=== PATIENT | male | born 1965 | race Caucasian/White ===

== ENCOUNTER → 2023-10-06 07:53 | Outpatient (REF) | payer BC, SELFPAY | LOC: PET 07:53 | PROVIDERS: ATTENDING PHYSICIAN Internal Medicine Hematology & Oncology | DX: C7A.012 Malignant carcinoid tumor of the ileum (principal) | CPT/HCPCS: 78815 ==

== ENCOUNTER → 2024-01-02 14:48 | Outpatient (REF) | payer BC, SELFPAY | LOC: HWRAD 14:48 | PROVIDERS: ATTENDING PHYSICIAN Internal Medicine Medical Oncology; FAMILY PHYSICIAN Family Medicine | DX: C7A.095 Malignant carcinoid tumor of the midgut, unspecified (principal) | CPT/HCPCS: 74178; Q9967 ==

== ENCOUNTER → 2024-04-01 10:40 | Outpatient (REF) | payer BC, SELFPAY ==
[2024-04-01 11:08] LABS: % Basophils 0.3 % (0-2); % Eosinophils 0.1 % (0-6); % Immature Granulocytes 0.4 % (0-0.5); % Lymphocytes 15.1 % (20.5-51.1); % Monocytes 9.9 % (1.7-9.3); % Neutrophils 74.2 % (42.2-75.2); Absolute Lymphocytes 1.2 10^3/uL (1.2-3.4); Absolute Monocytes 0.8 10^3/uL (0.1-0.6); Absolute Neutrophils 5.9 10^3/uL (1.4-6.5); Hematocrit 42.3 % (39.0-52.0); Hemoglobin 14.8 g/dL (13.0-18.0); Mean Corpuscular Hgb 32.4 pg (27.0-31.0); Mean Corpuscular Volume 92.6 fL (80.0-94.0); Mean Platelet Volume 9.3 fL (7.4-10.4); Nucleated Red Blood Cells % 0 % (-); Platelet Count 203 10^3/uL (130-400); Red Blood Cell Count 4.57 10^6/uL (4.70-6.10)
[2024-04-01 11:35] LABS: Procalcitonin 0.13 ng/ml (0.0-0.25)
[2024-04-01 11:50] LABS: ALT (SGPT) 36 U/L (0-50); AST (SGOT) 43 U/L (17-59); Albumin 4.6 g/dl (3.5-5.0); Alkaline Phosphatase 105 U/L (38-126); Blood Urea Nitrogen 22 mg/dl (9-20); Calcium 9.2 mg/dl (8.4-10.2); Carbon Dioxide 24 mmol/L (22-30); Chloride 94 mmol/L (98-107); Glucose 146 mg/dl (70-99); Potassium 4.2 mmol/L (3.5-5.1); Sodium 134 mmol/L (135-145); Total Bilirubin 0.9 mg/dl (0.2-1.3); Total Protein 7.4 g/dl (6.3-8.2); eGFR > 60.00
[2024-04-04 03:11] LABS: Calcitonin <2.0 pg/mL (0.0-7.5)
== END ==
LOC: REG 10:40
PROVIDERS: ATTENDING PHYSICIAN Nurse Practitioner Family; FAMILY PHYSICIAN Family Medicine; REFERRING PHYSICIAN Internal Medicine Medical Oncology
DX: E53.8 Deficiency of other specified B group vitamins (principal); E55.9 Vitamin D deficiency, unspecified; C7A.8 Other malignant neuroendocrine tumors; R50.9 Fever, unspecified; R05.1 Acute cough
CPT/HCPCS: 36415; 71046; 80053; 82308; 84145; 85025; 86140

== ENCOUNTER 2024-04-01 21:24 | Emergency (ER) | payer BC, SELFPAY ==
[2024-04-01 21:32] VITALS: BP 93/61
[2024-04-01 22:07] VITALS: BMI 21.7
[2024-04-01 22:10] VITALS: BP 104/70
--- NOTE | 2024-04-01 22:47 | ED.GENMED ---
History of Present Illness
<Bushra Mendez SURVEY RESEARCH ANALYST - Last Filed: 04/04/24 15:59>
General
Chief Complaint: Fever
Source: patient
Exam Limitations: none
Time Seen by Provider: 04/01/24 22:46
Nursing documentation reviewed up to this point in time: agreed with
History of Present Illness
History of Present Illness:
58-year-old male with history of diverticulitis, GERD, bowel obstruction,bowel resection was seen by his PCP Dr. Allen's SURVEY RESEARCH ANALYST earlier today and had blood work at this hospital and was placed on an antibiotic as when he urinated 'there was little
pieces of stuff in the urine,' rx for Cipro 500 mg BID given, pt has had one dose. States 'there was blood in the urine when they dipped it.' Denies frequency, urgency or pain with urination.
Pt w hx of neuroendocrine tumor remove 06/2022, receives monthly Lanreotide injections, last one was Fri 3 days ago. He started with fever 103.0 that night, never had fever with this injection before.
Had neg Covid, Flu and rapid strep at PCP office.
Had neg CXR today
Pt denies abdominal pain, n/v/d, had chronic loose stools from previous partial ileum resection w appendectomy 11/2021.
Past History
<Bushra Mendez SURVEY RESEARCH ANALYST - Last Filed: 04/04/24 15:59>
Past History
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
ED Past Surgical History: Appendectomy, Bowel resection and Cholecystectomy
Social History
Tobacco: Former smoker
Alcohol: Daily (Beer 1-2)
Drug: None
Personal: Partner (Common law)
Living: with family
Review of Systems
<Bushra Mendez SURVEY RESEARCH ANALYST - Last Filed: 04/04/24 15:59>
Review of Systems
Allergies reviewed?: Yes
All Other Systems: ROS reviewed and negative except as documented in HPI and ROS
Constitutional: Reports fever
EENT: Denies sore throat
Respiratory: Denies trouble breathing
Cardiac: Denies chest pain
ABD/GI: Denies abdominal pain, nausea, vomiting, diarrhea or anorexia
: Denies dysuria, frequency, flank pain, difficulty voiding or urgency
Musculoskeletal: Reports no symptoms
Skin: Reports no symptoms
Neurological: Reports no symptoms
Phy Exam
<Bushra Mendez, SURVEY RESEARCH ANALYST - Last Filed: 04/04/24 15:59>
Physical Exam
Physical Exam:
GENERAL: No acute distress. A&Ox3.
CONSTITUTIONAL: Afebrile.
EYES: clear, conjunctivae normal
Neck: Supple
ENMT: moist mucus membranes, Pharynx nl
RESPIRATORY: Regular respirations, nonlabored, lungs clear.
CARDIOVASCULAR: Regular rate and rhythm, no murmurs, no rubs.
GI: Soft, nontender, normal BS
MUSCULOSKELETAL: Moves with ease. Well perfused.
SKIN: Warm, dry, pink
PSYCH: Normal mood and affect. Well kept, interactive and appropriate
NEUROLOGIC: Awake, alert and oriented. No focal neurological deficits
Course
<Bushra Mendez, SURVEY RESEARCH ANALYST - Last Filed: 04/04/24 15:59>
Orders/Labs/Results
Orders:
Orders
04/01/24 22:57
Urinalysis Reflex To Culture Urgent
Date Specimen was Collected: 04/01/24
Time Specimen was Collected: 22:55
Urine Microscopic Reflex Cult Urgent
Urine Culture Urgent
EDGAR Source: U
Specimen Description:
Date Specimen was Collected: 04/01/24
Time Specimen was Collected: 22:55
04/01/24 23:27
CT Abd/pel Without Iv Or Oral Urgent
Comment:
Reason For Exam: hematuria, fever
Abnormal Lab Results
04/01/24
22:57
Ur Occult Blood Reflex 3+ A
(Negative)
Urine RBC 3-6 A /HPF
(0-2)
Urine Bacteria (Reflex) Moderate A
(Negative)
04/01/24 21:33
04/01/24 21:33
Vital Signs
Initial and Last Documented VS:
Initial Vital Signs
Temp Pulse Resp BP Pulse Ox
99.2 F 72 18 93/61 97
04/01/24 21:32 04/01/24 21:32 04/01/24 21:32 04/01/24 21:32 04/01/24 21:32
Last Documented Vital Signs
Temp Pulse Resp BP Pulse Ox
98.1 F 72 18 112/74 99
04/01/24 22:11 04/01/24 21:32 04/01/24 21:32 04/02/24 01:00 04/02/24 01:15
<Beto Logan, DO - Last Filed: 04/02/24 00:57>
Orders/Labs/Results
Orders:
Orders
04/01/24 22:57
Urinalysis Reflex To Culture Urgent
Date Specimen was Collected: 04/01/24
Time Specimen was Collected: 22:55
Urine Microscopic Reflex Cult Urgent
Urine Culture Urgent
EDGAR Source: U
Specimen Description:
Date Specimen was Collected: 04/01/24
Time Specimen was Collected: 22:55
04/01/24 23:27
CT Abd/pel Without Iv Or Oral Urgent
Comment:
Reason For Exam: hematuria, fever
Abnormal Lab Results
04/01/24
22:57
Ur Occult Blood Reflex 3+ A
(Negative)
Urine RBC 3-6 A /HPF
(0-2)
Urine Bacteria (Reflex) Moderate A
(Negative)
04/01/24 21:33
04/01/24 21:33
Vital Signs
Initial and Last Documented VS:
Initial Vital Signs
Temp Pulse Resp BP Pulse Ox
99.2 F 72 18 93/61 97
04/01/24 21:32 04/01/24 21:32 04/01/24 21:32 04/01/24 21:32 04/01/24 21:32
Last Documented Vital Signs
Temp Pulse Resp BP Pulse Ox
98.1 F 72 18 112/74 99
04/01/24 22:11 04/01/24 21:32 04/01/24 21:32 04/02/24 01:00 04/02/24 01:15
<Bushra Mendez SURVEY RESEARCH ANALYST - Last Filed: 04/04/24 15:59>
MDM/Problems Addressed
Differential Diagnosis Includes:
viral illness, UTI
MDM/Problems Addressed:
58-year-old male with history of diverticulitis, GERD, bowel obstruction,bowel resection was seen by his PCP Dr. Allen's SURVEY RESEARCH ANALYST earlier today and had blood work at this hospital and was placed on an antibiotic as when he urinated 'there was little
pieces of stuff in the urine,' rx for Cipro 500 mg BID given, pt has had one dose. States 'there was blood in the urine when they dipped it.' Denies frequency, urgency or pain with urination.
Pt w hx of neuroendocrine tumor remove 06/2022, receives monthly Lanreotide injections, last one was Fri 3 days ago. He started with fever 103.0 that night, never had fever with this injection before.
Had neg Covid, Flu and rapid strep at PCP office.
Had neg CXR today
Pt denies abdominal pain, n/v/d, had chronic loose stools from previous partial ileum resection w appendectomy 11/2021.
11:30 PM:
UA negative for infection, +3 occult blood, 3-6 RBCs
Will get plain CT of abdomen to rule out kidney stone, ureteral stone
Case discussed with Dr. Logan who will assume care from this point.
<Beto Logan, - Last Filed: 04/02/24 00:57>
*Radiology
Radiology exam reviewed: radiology read reviewed (CT ab pelvis no acute findings)
*Pulse Oximetry
Patient hypoxic: no
*Critical Care Note
Total Time (30-74mins, 75-104mins- exclusive of procedures): Not Applicable
Data Reviewed
Review of Other/Old Records Reveals: Labs (Outpatient labs showed no signs of UTI, normal CBC, performed today)
Source: records
<Beto Logan, - Last Filed: 04/02/24 00:57>
Patient Management
Social determinants of health affecting care: Living situation
Escalation/DeEscalation of care consider admission/obs:
Admit not indicated
ED Attending Note
<Bushra Mendez, SURVEY RESEARCH ANALYST - Last Filed: 04/04/24 15:59>
-
Portions of this chart may have been created with voice recognition software.� Occasional wrong word or��sound alike� substitutions may have occurred due to the inherent limitations of voice recognition software.
<Beto Logan, - Last Filed: 04/02/24 00:57>
ED Attending Note
Patient seen and examined by attending physician: Yes
ED Attending Note:
I have reviewed and agree with history and plan by Sultana mendez. My exam reveals 58-year-old male no acute distress. No acute findings on CT abdomen pelvis. Suspect possible viral cause. No kidney stones. Stable for discharge.
Discharge Plan
Departure
Patient Disposition: Home (Routine Discharge)
Date of Disposition: 04/02/24
Time of Disposition: 00:55
Patient with high blood pressure during this ER visit?: No
Condition: Good
Discharge Problem:
Fever, Hematuria
Instructions: Blood in the urine (hematuria) in adults, Fever, Adult (DC)
Prescriptions:
No Action
multivitamin with folic acid [Tab-A-Marlon] 1 TABLET tablet
1 tab PO DAILY
omeprazole 20 MG capsule,delayed release(DR/EC)
40 mg PO DAILY
acetaminophen 325 MG tablet
650 mg PO Q4HPRN PRN (Reason: mild pain/headache/T>100.4) 0RF
hydrocodone-acetaminophen 1 TABLET tablet
1 tab PO Q4HPRN PRN (Reason: moderate to severe pain) Qty: 25 0RF
simethicone [Gas Relief 80 (simethicone)] 80 MG tablet,chewable
80 mg PO QIDPRN PRN (Reason: GASTROINTESTINAL DISCOMFORT) Qty: 20 0RF
Referrals:
Beto Allen MD [Family Provider] -
Ilan Bailey MD [Active] - Call in 1-3 days for appt
Interventions
Interventions:
*Risk Screen - Suicide Last Done: 04/01/24 21:32
*General Assessment Last Done: 04/01/24 21:32
*Neglect/Abuse Screening Last Done: 04/01/24 21:32
ED- Fall Risk Assessment Last Done: 04/01/24 23:45
*ED COVID-19 Vaccine History Last Done: 04/01/24 22:07
*Nursing Disposition Last Done: 04/02/24 01:27
ED- Neurological Assessment Last Done: 04/01/24 22:07
ED-Skin Assessment Last Done: 04/01/24 22:07
Discharge Date and Time
Discharge Date/Time: 04/02/24 01:35
Print Language: KHMER
[2024-04-01 23:03] LABS: Urine Albumin Trace (Neg - Trace); Urine Bilirubin Negative (Negative); Urine Character Clear (Clear); Urine Color Yellow; Urine Glucose Negative (Negative); Urine Ketone Negative (Negative); Urine Leukocyte Negative (Negative); Urine Nitrite Negative (Negative); Urine Occult Blood 3+ (Negative); Urine Urobilinogen Negative (Neg - 1+)
[2024-04-01 23:09] LABS: Urine Mucus Few
[2024-04-01 23:10] LABS: Urine Bacteria Moderate (Negative); Urine White Cell 0-2 /HPF (0-5)
[2024-04-01 23:46] VITALS: BP 98/72
[2024-04-02] VITALS: BP 114/74
[2024-04-02 01:00] VITALS: BP 112/74
== END 2024-04-02 01:35 | disposition home or self-care (01) ==
LOC: EMR 21:24
PROVIDERS: Registered Nurse; EMERGENCY PHYSICIAN Emergency Medicine; FAMILY PHYSICIAN Family Medicine
DX: R50.9 Fever, unspecified (principal); R31.9 Hematuria, unspecified; K21.9 Gastro-esophageal reflux disease without esophagitis; Z90.49 Acquired absence of other specified parts of digestive tract; Z87.891 Personal history of nicotine dependence
CPT/HCPCS: 99284; 74176; 81003; 81015; 87086

== ENCOUNTER 2024-04-09 19:41 | Emergency (ER) | payer SELFPAY ==
[2024-04-09 19:44] VITALS: BP 120/80
--- NOTE | 2024-04-09 19:52 | EDRN ---
TRIAGE NOTE DONE BY KALPESH MORILLO RN
[2024-04-09 21:45] VITALS: BP 124/74
[2024-04-09 21:46] VITALS: BMI 22.3
[2024-04-09 21:54] LABS: % Basophils 0.3 % (0-2); % Eosinophils 1.1 % (0-6); % Immature Granulocytes 0.3 % (0-0.5); % Lymphocytes 16.2 % (20.5-51.1); % Monocytes 8.3 % (1.7-9.3); % Neutrophils 73.8 % (42.2-75.2); Absolute Eosinophils 0.1 10^3/uL (0-0.7); Absolute Lymphocytes 1.1 10^3/uL (1.2-3.4); Absolute Monocytes 0.6 10^3/uL (0.1-0.6); Absolute Neutrophils 4.9 10^3/uL (1.4-6.5); Hematocrit 33.9 % (39.0-52.0); Hemoglobin 12.2 g/dL (13.0-18.0); Mean Corpuscular Hgb 31.8 pg (27.0-31.0); Mean Corpuscular Volume 88.3 fL (80.0-94.0); Mean Platelet Volume 8.7 fL (7.4-10.4); Nucleated Red Blood Cells % 0 % (-); Platelet Count 329 10^3/uL (130-400); Red Blood Cell Count 3.84 10^6/uL (4.70-6.10); Red Cell Dist. Width 12.2 % (11.5-14.5); White Blood Cell Count 6.7 10^3/uL (4.8-10.8)
[2024-04-09 21:55] LABS: Urine Albumin Negative (Neg - Trace); Urine Bilirubin Negative (Negative); Urine Character Clear (Clear); Urine Color Yellow; Urine Glucose Negative (Negative); Urine Ketone Negative (Negative); Urine Leukocyte Negative (Negative); Urine Nitrite Negative (Negative); Urine Occult Blood 1+ (Negative); Urine Specific Gravity 1.015 (<1.030); Urine Urobilinogen Negative (Neg - 1+)
--- NOTE | 2024-04-09 22:00 | ED.GENMED ---
History of Present Illness
<EVELIN Newell - Last Filed: 04/10/24 02:00>
General
Chief Complaint: Fever
Source: patient and significant other
Time Seen by Provider: 04/09/24 22:00
Nursing documentation reviewed up to this point in time: agreed with
History of Present Illness
History of Present Illness:
Patient is a 58 year old male with a PMH of GERD bowel tumor and bowel resection presents to the ED with complaints of a fever x 4 hours. Patient states around 600pm tonight his temperature was 103. He was here on 04/01/24 for fever and hematuria. He
was negative for flu covid and strep, xray was negative. He was discharged and went to a PCP who gave him Cipro for a bladder infection. Patient states shortly after taking the Cipro, he developed a cough and watery diarrhea throughout this past
week. Patient denies blood in the stool. The cough is productive and described as phlegm and no blood. He states throughout the week his temperature would rise, which he takes Tylenol for. This is the first time it has been 103 in the past week. He
has an appointment with a urologist in a couple of weeks. Patient denies nausea vomiting abdominal pain flank pain dysuria urinary frequency/urgency headache chest pain palpitations sob.
Patient has a PMH of a neuroendocrine tumor in 2020 which was removed along with part of his bowel. He also has a PMH of diarrhea diverticulitis and GERD. Patient has been taking 2 Tylenol every 6 hours for the past week which would keep his
temperature down temporarily. Patient is a former smoker and admits to alcohol use.
Past History
<EVELIN Newell - Last Filed: 04/10/24 02:00>
Past History
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
ED Past Surgical History: Appendectomy, Bowel resection and Cholecystectomy
Social History
Tobacco: Former smoker
Alcohol: Daily (Beer 1-2)
Drug: None
Personal: Partner (Common law)
Living: with family
Review of Systems
<EVELIN Newell - Last Filed: 04/10/24 02:00>
Review of Systems
Allergies reviewed?: Yes
Constitutional: Reports fever
Respiratory: Reports cough
Cardiac: Reports no symptoms
ABD/GI: Reports diarrhea (watery)
: Reports no symptoms
Musculoskeletal: Reports no symptoms
Neurological: Reports no symptoms
Phy Exam
<EVELIN Newell - Last Filed: 04/10/24 02:00>
General Physical Exam
General Presentation: mild distress
General age: appears stated age
General Habitus: normal
General Mental: alert
Cardiovascular Exam
Cardiovascular Exam: regular rate/rhythm, no edema, no gallop, no JVD and no murmur
Pulmonary Exam
Pulmonary Exam: lungs clear, no respiratory distress, no rales, chest non tender, no crackles, no rhonchi, no stridor, no wheezing and no cough
Cough: productive cough (minimal mucous)
Gastrointestinal Exam
Gastrointestinal Exam: normal bowel sounds, non tender, soft, no organomegaly, no pulsatile mass, non distended and no cva tenderness
Course
<EVELIN Newell - Last Filed: 04/10/24 02:00>
Orders/Labs/Results
Orders:
Orders
04/09/24 21:43
Acetaminophen Urgent
Complete Blood Count/With Diff Urgent
Comprehensive Metabolic Panel Urgent
Lyme Progressive Urgent
Date Specimen was Collected: 04/09/24
Time Specimen was Collected: 19:49
Salicylate Urgent
Urinalysis Urgent
Date Specimen was Collected: 04/09/24
Time Specimen was Collected: 19:49
Urine Microscopic Urgent
Date Specimen was Collected: 04/09/24
Time Specimen was Collected: 19:49
04/09/24 22:43
Add On- LAB Urgent
Tests Added?: tylenol, hepatitis Panel, Salicylate
04/09/24 23:36
Hepatitis A IgM Antibody Urgent
Hepatitis B Core Ab, IgM Urgent
Hepatitis B Surface Antibody Urgent
Hepatitis B Surface Antigen Urgent
Hepatitis C Antibody Urgent
04/10/24 00:00
US Abdomen Complete/Upper Urgent
Reason For Exam: elevated LFTS
04/10/24 00:53
Fosfomycin [Monurol] 3 gm PO ONCE ONE
04/10/24 01:20
STOOL [C difficile Antigen & Toxins] Urgent
EDGAR Source: Feces/Stool
Specimen Description:
Abnormal Lab Results
04/09/24
21:43
RBC 3.84 L 10^6/uL
(4.70-6.10)
Hgb 12.2 L g/dL
(13.0-18.0)
Hct 33.9 L %
(39.0-52.0)
MCH 31.8 H pg
(27.0-31.0)
Absolute Lymphs (auto) 1.1 L 10^3/uL
(1.2-3.4)
Lymphocytes % 16.2 L %
(20.5-51.1)
Sodium 132 L mmol/L
(135-145)
Chloride 97 L mmol/L
(98-107)
Glucose 101 H mg/dl
(70-99)
AST 103 H U/L
(17-59)
ALT 139 H U/L
(0-50)
Total Protein 6.0 L g/dl
(6.3-8.2)
Albumin 3.4 L g/dl
(3.5-5.0)
Urine Occult Blood 1+ A
(Negative)
Urine RBC 3-6 A /HPF
(0-2)
Urine Bacteria Few A
(Negative)
Salicylates < 1.0 L mg/dl
(2.0-20.0)
Acetaminophen < 10 L ug/ml
(10-30)
04/09/24 21:43
04/09/24 21:43
Vital Signs
Initial and Last Documented VS:
Initial Vital Signs
Temp Pulse Resp BP Pulse Ox
99.7 F 94 22 120/80 95
04/09/24 19:44 04/09/24 19:44 04/09/24 19:44 04/09/24 19:44 04/09/24 19:44
Last Documented Vital Signs
Temp Pulse Resp BP Pulse Ox
99.6 F 75 18 127/74 96
04/09/24 23:38 04/09/24 23:38 04/10/24 00:00 04/09/24 23:36 04/09/24 23:38
<Gael Zaman, DO - Last Filed: 04/10/24 01:57>
Orders/Labs/Results
Orders:
Orders
04/09/24 21:43
Acetaminophen Urgent
Complete Blood Count/With Diff Urgent
Comprehensive Metabolic Panel Urgent
Lyme Progressive Urgent
Date Specimen was Collected: 04/09/24
Time Specimen was Collected: 19:49
Salicylate Urgent
Urinalysis Urgent
Date Specimen was Collected: 04/09/24
Time Specimen was Collected: 19:49
Urine Microscopic Urgent
Date Specimen was Collected: 04/09/24
Time Specimen was Collected: 19:49
04/09/24 22:43
Add On- LAB Urgent
Tests Added?: tylenol, hepatitis Panel, Salicylate
04/09/24 23:36
Hepatitis A IgM Antibody Urgent
Hepatitis B Core Ab, IgM Urgent
Hepatitis B Surface Antibody Urgent
Hepatitis B Surface Antigen Urgent
Hepatitis C Antibody Urgent
04/10/24 00:00
US Abdomen Complete/Upper Urgent
Reason For Exam: elevated LFTS
04/10/24 00:53
Fosfomycin [Monurol] 3 gm PO ONCE ONE
04/10/24 01:20
STOOL [C difficile Antigen & Toxins] Urgent
EDGAR Source: Feces/Stool
Specimen Description:
Abnormal Lab Results
04/09/24
21:43
RBC 3.84 L 10^6/uL
(4.70-6.10)
Hgb 12.2 L g/dL
(13.0-18.0)
Hct 33.9 L %
(39.0-52.0)
MCH 31.8 H pg
(27.0-31.0)
Absolute Lymphs (auto) 1.1 L 10^3/uL
(1.2-3.4)
Lymphocytes % 16.2 L %
(20.5-51.1)
Sodium 132 L mmol/L
(135-145)
Chloride 97 L mmol/L
(98-107)
Glucose 101 H mg/dl
(70-99)
AST 103 H U/L
(17-59)
ALT 139 H U/L
(0-50)
Total Protein 6.0 L g/dl
(6.3-8.2)
Albumin 3.4 L g/dl
(3.5-5.0)
Urine Occult Blood 1+ A
(Negative)
Urine RBC 3-6 A /HPF
(0-2)
Urine Bacteria Few A
(Negative)
Salicylates < 1.0 L mg/dl
(2.0-20.0)
Acetaminophen < 10 L ug/ml
(10-30)
04/09/24 21:43
04/09/24 21:43
Vital Signs
Initial and Last Documented VS:
Initial Vital Signs
Temp Pulse Resp BP Pulse Ox
99.7 F 94 22 120/80 95
04/09/24 19:44 04/09/24 19:44 04/09/24 19:44 04/09/24 19:44 04/09/24 19:44
Last Documented Vital Signs
Temp Pulse Resp BP Pulse Ox
99.6 F 75 18 127/74 96
04/09/24 23:38 04/09/24 23:38 04/10/24 00:00 04/09/24 23:36 04/09/24 23:38
<EVELIN Newell - Last Filed: 04/10/24 02:00>
MDM/Problems Addressed
Differential Diagnosis Includes:
hepatitis, tylenol overuse
MDM/Problems Addressed:
Liver enzymes elevated, order hepatitis panel and RUQ ultrasound 130a imaging negative will give 1 dose of fosfomycin. Educated patient that the high liver enzymes are most likely from excessive Tylenol use and his diarrhea could be a side effect
from when he was taking Cipro.
<EVELIN Newell - Last Filed: 04/10/24 02:00>
*Critical Care Note
Total Time (30-74mins, 75-104mins- exclusive of procedures): Not Applicable
<Gael Zaman DO - Last Filed: 04/10/24 01:57>
Update Note
Update Note:
US ABD
Comparison: CT on 04/01/2024.
IMPRESSION:
The gallbladder is surgically absent. No fluid within the gallbladder fossa.
Common bile duct measures 7 mm.
Unremarkable sonographic appearance of the liver, bilateral kidneys, spleen, and visualized pancreas.
04/10/2024 0151 AM patient states that he just had a C. difficile test. He wishes to be discharged.
ED Attending Note
<EVELIN Newell - Last Filed: 04/10/24 02:00>
-
Portions of this chart may have been created with voice recognition software.� Occasional wrong word or��sound alike� substitutions may have occurred due to the inherent limitations of voice recognition software.
<Gael Zaman DO - Last Filed: 04/10/24 01:57>
ED Attending Note
Patient seen and examined by attending physician: Yes
I performed the substantive portion of visit, reviewed & personally made and approve the management plan that is documented in note by myself or RAFAEL.: Yes
ED Attending Note:
This is a pleasant 58-year-old male that presents with intermittent fevers. He has been seen by his primary care provider 3 times in the last week with no answer to why he has been febrile. He states it only comes on at night. Patient has a
history of GERD and abdominal tumor. He is followed at [facility]. He has been treated with Cipro for a UTI. After taking the Cipro he has had cough and watery diarrhea. Patient denies any chest pain or shortness of breath. Reports no abdominal
pain. Patient was seen in conjunction with the PA student. I have reviewed and agree with the history and treatment plan presented. On my independent physical exam, patient is awake, alert, and oriented x3, no acute distress. Heart is regular
rate rhythm. Lungs clear auscultation by laterally without wheezes rales or rhonchi present. Abdomen is soft nontender nondistended no hepatosplenomegaly. Good bowel sounds x 4 quadrants. Nontender to deep or superficial palpation.
Ultrasound is negative. Surgically absent gallbladder.
Leukocytosis pending. Patient will follow-up with oncology and GI at [facility].
Discharge Plan
Departure
Patient Disposition: Home (Routine Discharge)
Date of Disposition: 04/10/24
Time of Disposition: 01:53
Patient with high blood pressure during this ER visit?: No
Condition: Good
Discharge Problem:
Fever, Diarrhea, Elevated transaminase level, Hematuria
Prescriptions:
No Action
multivitamin with folic acid [Tab-A-Marlon] 1 TABLET tablet
1 tab PO DAILY
omeprazole 20 MG capsule,delayed release(DR/EC)
40 mg PO DAILY
acetaminophen 325 MG tablet
650 mg PO Q4HPRN PRN (Reason: mild pain/headache/T>100.4) 0RF
hydrocodone-acetaminophen 1 TABLET tablet
1 tab PO Q4HPRN PRN (Reason: moderate to severe pain) Qty: 25 0RF
simethicone [Gas Relief 80 (simethicone)] 80 MG tablet,chewable
80 mg PO QIDPRN PRN (Reason: GASTROINTESTINAL DISCOMFORT) Qty: 20 0RF
Referrals:
Beto Allen MD [Family Provider] -
Activity Restrictions/Additional Instructions:
As discussed, please discontinue Tylenol. Have her repeat liver function tests performed in 1 to 2 weeks. Follow-up with your GI specialist at [facility]. Discussed your visit today with your oncologist.
It was a pleasure meeting you and taking part in your care. We hope for your continued healing and wellness.
Please read discharge instructions in their entirety. However, they are for general education and may not describe your exact diagnosis at discharge. Information on your ER visit and medical conditions were discussed with you along with appropriate
follow up information...
If indicated, please take your medications as instructed and indicated on discharge paperwork.
Please schedule a follow up appointment as directed. Call to schedule an appointment
Please return to the emergency department with ANY change in, persisting, or worsening of symptoms. If any of your symptoms do not improve, or persist, or become more severe within 6-12 hours, please return to the emergency department for further
care.
Please return to the emergency department if you develop a headache, neck pain/stiffness, fever greater than 100.4F, chest pain, shortness of breath, persistent nausea, vomiting, slurred speech, difficulty walking, numbness/tingling, weakness, signs
of infection or any other symptoms that are worrisome to you.
If you have any questions or concerns please do not hesitate to call the Hospital at
Interventions
Interventions:
*Risk Screen - Suicide Last Done: 04/09/24 19:42
*Neglect/Abuse Screening Last Done: 04/09/24 19:44
ED- Fall Risk Assessment Last Done: 04/09/24 22:37
*ED COVID-19 Vaccine History Last Done: 04/10/24 00:12
ED- Neurological Assessment Last Done: 04/09/24 22:37
ED-Skin Assessment Last Done: 04/09/24 22:37
Discharge Date and Time
Print Language: KOREAN
[2024-04-09 22:07] LABS: ALT (SGPT) 139 U/L (0-50); AST (SGOT) 103 U/L (17-59); Albumin 3.4 g/dl (3.5-5.0); Alkaline Phosphatase 99 U/L (38-126); Blood Urea Nitrogen 16 mg/dl (9-20); Calcium 8.5 mg/dl (8.4-10.2); Carbon Dioxide 24 mmol/L (22-30); Chloride 97 mmol/L (98-107); Estimated Creatinine Clearance 82 ml/min; Glucose 101 mg/dl (70-99); Potassium 3.6 mmol/L (3.5-5.1); Sodium 132 mmol/L (135-145); Total Bilirubin 0.5 mg/dl (0.2-1.3); eGFR > 60.00
[2024-04-09 22:19] LABS: Urine Mucus Moderate
[2024-04-09 22:20] LABS: Urine Bacteria Few (Negative); Urine White Cell 0-2 /HPF (0-5)
[2024-04-09 23:19] LABS: Acetaminophen < 10 ug/ml (10-30); Salicylate < 1.0 mg/dl (2.0-20.0)
[2024-04-09 23:36] VITALS: BP 127/74
[2024-04-10 01:33] LABS: Hepatitis B Surface Antigen Negative (Negative)
[2024-04-10] MEDS: MONUROL 3 GM PO (01:33)
[2024-04-10 01:38] LABS: Hepatitis A IgM Antibody Negative (Negative); Hepatitis B Core Ab, IgM Negative (Negative)
[2024-04-10 01:50] LABS: Hepatitis B Surface Antibody Negative; Hepatitis C Antibody Negative (Negative)
[2024-04-11 15:02] LABS: Lyme Antibody Screen, EIA Negative (Negative)
== END 2024-04-10 02:20 | disposition home or self-care (01) ==
LOC: EMR 19:41
PROVIDERS: Emergency Medicine; EMERGENCY PHYSICIAN Student in an Organized Health Care Education/Training Program; FAMILY PHYSICIAN Family Medicine
DX: R50.9 Fever, unspecified (principal); R05.9 Cough, unspecified; R19.7 Diarrhea, unspecified; R31.9 Hematuria, unspecified; R74.01 Elevation of levels of liver transaminase levels; K57.92 Diverticulitis of intestine, part unspecified, without perforation or abscess without bleeding; K21.9 Gastro-esophageal reflux disease without esophagitis; C7B.8 Other secondary neuroendocrine tumors; Z87.891 Personal history of nicotine dependence; Z90.49 Acquired absence of other specified parts of digestive tract; Z98.0 Intestinal bypass and anastomosis status
CPT/HCPCS: 99284; 76700; 80053; 80143; 80179; 81003; 81015; 85025; 86618; 86705; 86706; 86709; 86803; 87340

== ENCOUNTER → 2024-04-17 13:42 | Outpatient (REF) | payer BC, SELFPAY | LOC: HWRAD 13:42 | PROVIDERS: ATTENDING PHYSICIAN Family Medicine; REFERRING PHYSICIAN Internal Medicine Medical Oncology | DX: R05.1 Acute cough (principal) | CPT/HCPCS: 71260; 74177; Q9967 ==

== ENCOUNTER → 2024-08-23 10:32 | Outpatient (REF) | payer BC, SELFPAY | LOC: RAD 10:32 | PROVIDERS: ATTENDING PHYSICIAN Internal Medicine Medical Oncology; FAMILY PHYSICIAN Family Medicine | DX: C7A.095 Malignant carcinoid tumor of the midgut, unspecified (principal) | CPT/HCPCS: 74178; Q9967 ==

== ENCOUNTER → 2024-12-27 09:13 | Outpatient (REF) | payer BC, SELFPAY | LOC: RAD 09:13 | PROVIDERS: ATTENDING PHYSICIAN Internal Medicine Medical Oncology; FAMILY PHYSICIAN Family Medicine | DX: C7A.8 Other malignant neuroendocrine tumors (principal) | CPT/HCPCS: 74178; Q9967 ==

== ENCOUNTER → 2025-05-02 10:43 | Outpatient (REF) | payer BC, SELFPAY | LOC: RAD 10:43 | PROVIDERS: ATTENDING PHYSICIAN Nurse Practitioner Adult Health; FAMILY PHYSICIAN Family Medicine | DX: C7A.8 Other malignant neuroendocrine tumors (principal) | CPT/HCPCS: 74178; Q9967 ==

== ENCOUNTER → 2025-05-09 13:48 | Outpatient (REF) | payer BC, SELFPAY | LOC: RAD 13:48 | PROVIDERS: ATTENDING PHYSICIAN Family Medicine | DX: K59.00 Constipation, unspecified (principal) | CPT/HCPCS: 74018 ==

== ENCOUNTER 2025-05-10 07:30 | Inpatient (IN) | payer BC, SELFPAY ==
[2025-05-09 23:49] VITALS: BP 104/67
[2025-05-10 02:50] VITALS: BMI 21.5
[2025-05-10 03:00] VITALS: BP 102/71
[2025-05-10 03:06] LABS: Hematocrit 43.4 % (39.0-52.0); Hemoglobin 14.8 g/dL (13.0-18.0); Mean Corp Hgb Conc. 34.1 g/dL (33.0-37.0); Mean Corpuscular Volume 96.0 fL (80.0-94.0); Nucleated Red Blood Cells % 0 % (-); Platelet Count 290 10^3/uL (130-400); Red Cell Dist. Width 12.0 % (11.5-14.5)
[2025-05-10 03:31] LABS: ALT (SGPT) 27 U/L (0-50); AST (SGOT) 41 U/L (17-59); Albumin 4.7 g/dl (3.5-5.0); Alkaline Phosphatase 108 U/L (38-126); Blood Urea Nitrogen 22 mg/dl (9-20); Calcium 9.8 mg/dl (8.4-10.2); Carbon Dioxide 29 mmol/L (22-30); Chloride 95 mmol/L (98-107); Estimated Creatinine Clearance 55 ml/min; Glucose 113 mg/dl (70-99); Lipase 40 U/L (23-300); Potassium 4.6 mmol/L (3.5-5.1); Sodium 132 mmol/L (135-145); Total Protein 7.8 g/dl (6.3-8.2); eGFR 57.54
[2025-05-10 04:00] VITALS: BP 107/77
[2025-05-10] MEDS: NSS 1000 IV ×2 (04:34→09:13)
--- NOTE | 2025-05-10 05:01 | ED.GENMED ---
History of Present Illness
General
Chief Complaint: Abdominal Symptoms
Source: patient, records and family
Exam Limitations: none
Time Seen by Provider: 05/10/25 04:24
Nursing documentation reviewed up to this point in time: agreed with
History of Present Illness
History of Present Illness:
59-year-old male with history as noted significant for neuroendocrine tumor requiring bowel resection who presents to the ER for evaluation of abdominal pain, constipation and vomiting. Patient reports that for the past 2 weeks he has noticed
increased constipation. He says he has not had a significant bowel movement for over a week and over the past few days has passed essentially no stool and no gas. He says that he had an outpatient x-ray which showed significant constipation today.
He had been taking milk of magnesia and MiraLAX was told to switch to Ex-Lax. He says that despite this he is still not passed any stool. He is having increasing abdominal bloating 'like I am ' and 'waves of pain' across the abdomen. He
describes increased bowel sounds. He today began feeling nauseated and tonight vomited x 2 and he describes the vomitus as feculent--'it looked and smelled like poop.' Came to the ER for assessment.
Past History
Past History
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
ED Past Surgical History: Appendectomy, Bowel resection and Cholecystectomy
Social History
Tobacco: Former smoker
Alcohol: Daily (Beer 1-2)
Drug: None
Personal: Partner (Common law)
Living: with family
Review of Systems
Review of Systems
All Other Systems: ROS reviewed and negative except as documented in HPI and ROS
Constitutional: Denies fever
Respiratory: Denies trouble breathing
Cardiac: Denies chest pain
ABD/GI: Reports abdominal pain, nausea, vomiting and constipated; Denies diarrhea
: Denies flank pain
Musculoskeletal: Denies neck pain or back pain
Neurological: Denies headache
Phy Exam
Physical Exam
Physical Exam:
General: Awake, alert, oriented x3; no acute distress
Head: Normocephalic, atraumatic
Eyes: Conjunctiva normal, sclerae anicteric
Throat: Airway intact, handling secretions
Neck: Trachea midline, supple without meningismus
Lungs: Clear to auscultation bilaterally, no wheezing, rales, rhonchi
Heart: Regular rate and rhythm, no murmurs, gallops, or rubs
Abd: Soft, mildly distended, diffusely tender to palpation
Neuro: Grossly intact
Skin: Warm and dry
Extremities: No edema in extremities, warm and well-perfused
Scores
Heart Failure Risk
Heart Failure Risk Score: Not Applicable
Heart Score for Chest Pain Patients
STEMI patient?: Not applicable
Withdrawal Assessment of Alcohol
Withdrawal Assessment Completed?: Not applicable
Course
Orders/Labs/Results
Orders:
Orders
05/10/25 02:55
Complete Blood Count/With Diff Urgent
Comprehensive Metabolic Panel Urgent
Lipase Urgent
05/10/25 04:26
CT Abd/pelvis W Iv Cont Urgent
Comment:
Reason For Exam: abd pain, constipation, vomiting
0.9% Sodium Chloride 1000 ml [Nss] 1,000 ml IV BOLUS
05/10/25 05:18
ColoRectal Surgery Consult Urgent
Consulting Provider: Josr Moreno
Was physician already notified: Yes
NG Tube [GI tube insertion- Treatment] ONCE
Abnormal Lab Results
05/10/25
02:55
RBC 4.52 L 10^6/uL
(4.70-6.10)
MCV 96.0 H fL
(80.0-94.0)
MCH 32.7 H pg
(27.0-31.0)
Absolute Neuts (auto) 6.9 H 10^3/uL
(1.4-6.5)
Absolute Monos (auto) 0.8 H 10^3/uL
(0.1-0.6)
Lymphocytes % 16.3 L %
(20.5-51.1)
Sodium 132 L mmol/L
(135-145)
Chloride 95 L mmol/L
(98-107)
BUN 22 H mg/dl
(9-20)
Creatinine 1.4 H mg/dL
(0.7-1.3)
Glucose 113 H mg/dl
(70-99)
Total Bilirubin 1.5 H mg/dl
(0.2-1.3)
05/10/25 02:55
05/10/25 02:55
Vital Signs
Initial and Last Documented VS:
Initial Vital Signs
Temp Pulse Resp BP Pulse Ox
36.9 C 95 20 104/67 98
05/09/25 23:49 05/09/25 23:49 05/09/25 23:49 05/09/25 23:49 05/09/25 23:49
Last Documented Vital Signs
Temp Pulse Resp BP Pulse Ox
36.9 C 73 15 107/77 97
05/09/25 23:49 05/10/25 04:15 05/10/25 04:15 05/10/25 04:00 05/10/25 05:06
MDM/Problems Addressed
Differential Diagnosis Includes:
Constipation, bowel obstruction, volvulus
MDM/Problems Addressed:
59-year-old male with history as noted significant for neuroendocrine tumor and prior bowel resection who presents to the ER with increasing constipation, abdominal distention and now vomiting which she describes as feculent. Vitals and exam as
above. I did review outpatient x-ray from 05/09�read as ileus versus developing colonic obstruction. He did have labs in triage which were reviewed: CBC essentially unremarkable, CMP shows mild SHERLEY�will provide some IV fluids. Will check CT
abdomen pelvis. Reassess after the above.
CT shows findings concerning for acute large bowel obstruction with transition point at the level of the sigmoid colon. Also a few dilated loops of small bowel also suspicious for obstruction. Case discussed with colorectal surgery for
consultation. Continue fluids. Will place NG tube for decompression. Will admit for continued management. Discussed case with hospitalist.
Chronic conditions affecting care:
Neuroendocrine tumor
*Radiology
Radiology exam reviewed: preliminary read by ED provider and radiology read reviewed
*Pulse Oximetry
SaO2: 97
Oxygen Mode of Delivery: Room air
Patient hypoxic: no (97%)
*Critical Care Note
Total Time (30-74mins, 75-104mins- exclusive of procedures): Not Applicable
Data Reviewed
Source: patient, records and family
Patient Management
Discussion with other providers: Hospitalist (Discussed with hospitalist) and Information Assurance Officer (Discussed with colorectal surgeon)
Escalation/DeEscalation of care consider admission/obs:
Admission indicated
ED Attending Note
-
Portions of this chart may have been created with voice recognition software.� Occasional wrong word or��sound alike� substitutions may have occurred due to the inherent limitations of voice recognition software.
Discharge Plan
Departure
Patient Disposition: Admit
Date of Disposition: 05/10/25
Time of Disposition: 05:20
Admit to doctor: Ravindra
Presentation/result/management discussed w/ accepting MD/DO: Hospitalist
Discharge Problem:
Large bowel obstruction, SHERLEY (acute kidney injury)
Prescriptions:
No Action
multivitamin with folic acid [Tab-A-Marlon] 1 TABLET tablet
1 tab PO DAILY
omeprazole 20 MG capsule,delayed release(DR/EC)
40 mg PO DAILY
acetaminophen 325 MG tablet
650 mg PO Q4HPRN PRN (Reason: mild pain/headache/T>100.4) 0RF
hydrocodone-acetaminophen 1 TABLET tablet
1 tab PO Q4HPRN PRN (Reason: moderate to severe pain) Qty: 25 0RF
simethicone [Gas Relief 80 (simethicone)] 80 MG tablet,chewable
80 mg PO QIDPRN PRN (Reason: GASTROINTESTINAL DISCOMFORT) Qty: 20 0RF
Interventions
Interventions:
*Risk Screen - Suicide Last Done: 05/09/25 23:49
*General Assessment Last Done: 05/09/25 23:49
*Neglect/Abuse Screening Last Done: 05/09/25 23:49
*ED- Fall Risk Assessment Last Done: 05/09/25 23:49
*ED COVID-19 Vaccine History Last Done: 05/09/25 23:49
*ED Influenza Vaccine History Last Done: 05/09/25 23:49
GH-Fvecft-Fdevtlygro Assessment Last Done: 05/10/25 02:51
Discharge Date and Time
Print Language: BELARUSIAN
[2025-05-10 06:00] VITALS: BP 130/70
--- NOTE | 2025-05-10 06:49 | HPS.HSE ---
Family Physician
-
Family Physician: Beto Allen
Chief Complaint
-
Abd pain, N/V
History of Present Illness
Patient is a 59y M with PMH significant for neuroendocrine tumor with known peritoneal carcinomatosis who presents to ED complaining of abdominal pain, distention and N/V. Patient notes that he had his most recent dose of lanreotide on 04/25.
This is typically followed by a period of diarrhea - however, he had no such symptoms this time. He began to note some abdominal bloating sensation. He had abdominal CT done on 05/02 which showed evidence of large colonic stool burden. He was
advised to follow bowel regimen and notes that he did manage to have multiple bowel movements thereafter. Unfortunately, he continued to have abdominal distention and gradually increasing discomfort / pain. Today he was seen by his PCP and sent
for an x-ray. This showed improvement in constipation - but new evidence of acute large bowel obstruction. Patient was directed to the ED for further evaluation. This evening he notes that he started to have emesis as well and notes that it
'looked and smelled' like feces.
In the ED, CVT was done which also showed evidence of distal large bowel obstruction.
NG was placed for decompression.
Medical History
Past Medical History
Past Medical History: Reports Other
Additional Past Medical History:
Neuroendocrine Carcinoma with Peritoneal Carcinomatosis
BPH
Small Bowel Obstructions
Past Surgical History: Reports Other
Additional Past Surgical History:
Neuroendocrine Tumor Resection / SBR
Ex Lap with Partial SBR, Appendectomy and Omental Resection
Cholecystectomy
Hernia Repair
Social History
Tobacco: Non-smoker
Alcohol: None
Drug: None
Personal:
Living: With Family
Family History
Family History: Not pertinent
Allergies / Home Medications
Allergies reflects when Allergies were last updated in [facility].
Home Medications with original date entered in [facility]
Allergy/Medication List:
Allergies
Allergy/AdvReac Type Severity Reaction Status Date / Time
No Known Allergies Allergy Verified 05/09/25 23:49
Home Medications
lanreotide 120 mg/0.5 mL subcutaneous syringe 120 mg SC Q4W 05/10/25
[id number] (pork)6,000-19,000-30,000 unit capsule,del rel (Creon) 1 cap PO AC 05/10/25
tamsulosin 0.4 mg capsule 0.4 mg PO DAILY 05/10/25
Review of Systems
-
History Source: Patient
A 12 point ROS was completed and negative except as noted: Yes
Constitutional: Denies Fever or Chills
Respiratory: Denies Cough or Trouble Breathing
Cardiac: Denies Chest Pain or Palpitations
Abdomen/GI: Reports Abdominal Pain, Nausea, Vomiting and Constipated; Denies Diarrhea
: Denies Dysuria or Frequency
Musculoskeletal: Denies Joint Pain or Edema
Neurological: Denies Dizzy or Headache
Physical Exam
Vital Signs
Vital Signs
Temp Pulse Resp BP Pulse Ox
98.5 F 83 13 130/70 100
05/09/25 23:49 05/10/25 06:00 05/10/25 06:00 05/10/25 06:00 05/10/25 06:00
Physical Exam
General: Other (59y M in no acute distress.)
HEENT: Other (NG in place with small amount of liquid drainage in container. MMM.)
Respiratory: Clear; No Wheezes, Rales or Rhonchi
Cardiac: S1/S2 and Regular Rhythm; No Murmur
GI: Other (Abdomen is distended / slightly firm. Bowel sounds are present. Mild tenderness across lower abdomen.)
Musculoskeletal: No Clubbing, No Cyanosis and No Edema
Neuro: AO x 3
Laboratory Results
-
05/10/25 02:55
05/10/25 02:55
Laboratory Results
Total Bilirubin 1.5 mg/dl (0.2-1.3) H 05/10/25 02:55
AST 41 U/L (17-59) 05/10/25 02:55
ALT 27 U/L (0-50) 05/10/25 02:55
Alkaline Phosphatase 108 U/L (38-126) 05/10/25 02:55
Lipase 40 U/L (23-300) 05/10/25 02:55
Impression/Plan
-
A/P: Patient is a 59y M with PMH significant for neuroendocrine carcinoma who presents to ED complaining of abdominal pain and N/V.
Distal Large Bowel Obstruction
- Admit for further evaluation and treatment.
- NG decompression, NPO, pain control, antiemetics and IVFs.
- Surgery consulted for further evaluation / recommendations.
- Follow for any new / worsening symptoms.
SHERLEY
- SCr = 1.4 compared to known baseline of 1.0.
- Likely secondary to poor PO intake, N/V, etc.
- IVF support as noted above and follow for improvement in renal function.
Neuroendocrine Tumor with Peritoneal Carcinomatosis
- Suspect this is related to current presentation either in regards to carcinomatosis, scar tissue, etc.
- Currently maintained on monthly lanreotide.
- Follow-up with Oncology as planned.
BPH
- Stable. Bladder scan protocol.
DVT Prophylaxis: SCDs
Code Status: Full
[2025-05-10 07:00] VITALS: BP 120/75
--- NOTE | 2025-05-10 07:59 | W.PN.HOSP.TC ---
Addendum entered and electronically signed by Merlin Muñoz DO 05/10/25 14:03:
Received phone call from [facility] just now.
Accepted by [facility], Dr. Escalante, surgical oncology.
Will be transferred today.
Addendum entered and electronically signed by Merlin Muñoz DO 05/10/25 13:48:
Spoke with surgical service, recommendation for [facility] transfer.
Patient and family agreeable to transfer. Consent signed.
Spoke with [facility] surgeon, Dr. Townsend.
Patient has been accepted, awaiting bed availability.
Original Note:
Today's Communication/Plan
-
IV fluids
NG tube
N.p.o.
Surgical consult
Assessment / Plan
Assessment / Plan
Gen-AAOx3, NAD
HEENT-NC, AT, anicteric, clear oral mm, NG tube
Neck-supple
CV-reg, no M, +S1/S2
Lungs-clear B/L
Abd-distended, tender
Ext-no edema
Musculoskeletal-no cyanosis, clubbing
Skin-warm and dry
Neuro-grossly non-focal
Psych-calm, cooperative
Acute large bowel obstruction -possibly due to underlying neuroendocrine cancer, adhesions. Symptoms have been brewing for the past 2 weeks.
Continue n.p.o., NG tube. Surgery consulted. Follow-up CT scan report.
Was on Lomotil daily for loose stools up until 1-1/2 weeks ago then discontinued by patient.
Gave himself an enema yesterday with minimal output.
SHERLEY -due to volume depletion from bowel obstruction, anorexia. Continue IV fluid support.
Hyponatremia -possibly due to hypovolemia. Continue normal saline IV.
Neuroendocrine tumor -gets his care through [facility]. Is on lanreotide every 4 weeks, last dose 04/25.
Treated with exploratory laparotomy, small bowel resection, June 12 2021. 50 cm small bowel removed at the time.
Subsequently underwent laparotomy with ileocecectomy and primary anastomosis, partial omentectomy, 11/08/2021.
BPH
Full code
updated at bedside.
Anticipated Discharge: > 48 hours
Subjective/Interval History
-
Date of Service: May 10, 2025
Patient seen and examined. Feeling better with NG tube. No complaints.
Objective Data
-
Labs:
Laboratory Results
05/10/25
02:55
WBC 9.4
Hgb 14.8
Hct 43.4
Plt Count 290
Sodium 132 L
Potassium 4.6
Chloride 95 L
Carbon Dioxide 29
BUN 22 H
Creatinine 1.4 H
Glucose 113 H
Calcium 9.8
Total Bilirubin 1.5 H
AST 41
ALT 27
Alkaline Phosphatase 108
Vital Signs:
Vital Signs
Temp Pulse Resp BP Pulse Ox
98.5 F 70 12 120/75 96
05/09/25 23:49 05/10/25 07:00 05/10/25 07:00 05/10/25 07:00 05/10/25 07:00
Review of Systems
-
History Source: Patient
All other systems: Reviewed and negative
[2025-05-10 08:33] VITALS: BP 126/68
--- NOTE | 2025-05-10 08:35 | PTCARENOTE ---
Received pt from ED via stretcher. Pt AAOX3. Pox: 96% RA. Call agosto within reach. Family at bedside. Plan of care ongoing.
[2025-05-10] MEDS: NSS (PRESERVATIVE FREE) 10 ML IV (09:11)
[2025-05-10] MEDS: PROTONIX IV 40 MG IV (09:11)
--- NOTE | 2025-05-10 10:40 | CON.GS ---
Addendum entered and electronically signed by Josr Moreno MD 05/10/25 11:19:
Patient seen and examined.
Patient is a 59 yo M with a PMH of BPH, s/p laparoscopic cholecystectomy, and stage IV neuroendocrine tumor with known peritoneal carcinomatosis s/p ex lap with SBR by myself in 2020 and s/p ex lap with ileocecectomy and partial omentectomy by
William in 2021. He has been followed by [facility] and is currently on lanreotide. His last dose was on 04/25/2025. Following this dose Mr. Carias notes changes and decreases in his bowel function. He typically has several episodes of
diarrhea following treatments. Following this most recent treatment he did not have as much of an effect. Over the subsequent 3 weeks he has noticed increased abdominal distention and minimal erratic bowel habits. Particularly over the last week
he has noticed decreased stool output with some associated flatus. Last episode reported to be yesterday. No fevers or chills. No significant nausea or vomiting. He is not currently on any bowel regimen. Most recent colonoscopy was in 2022 and
notable for diverticulosis, hemorrhoids, no polyps or masses seen endoluminally, patient ileocolonic anastomosis.
Gen: NAD
Abd: soft, NT, distended, non-peritoneal, prior midline incision and lap sites well healed
Labs and CT scan imaging were reviewed.
Patient is a 59 yo M p/w large bowel obstruction likely malignant in nature given his history and CT scan findings.
Recent CT scan imaging was reviewed. The natural history and pathophysiology of large bowel obstructions was reviewed. Typically these are more urgent in nature, however, he has passed recent flatus and stool, he also has had a prior ileocolonic
resection with no IC valve. There is no significant small bowel or gastric dilation on his CT scan. There is no pneumatosis or free air.
Surgical options for management at this time were reviewed. We specifically discussed a palliative diverting colostomy versus exploratory laparotomy with cytoreductive surgery +/- HIPEC. The pros and cons of both approaches was discussed. Given
the advanced nature of his underlying malignancy as well as to facilitate any and all potential surgical options would recommend transfer to [place] where he currently has all his oncologic care. Patient and family are in agreement. All
questions answered.
-- NPO, IVF
-- Transfer to [place]
-- Consider Miralax and trial of clears if delay in transfer
Original Note:
Consultation
-
Date/Time Consultation Performed: 05/10/25 0930
Medical History
-
Chief Complaint: abdominal pain
History of Present Illness:
Mr Carias is a 59 yo male with h/o neuroendocrine tumor dx in 2020 at time of malignant SBO, subsequent laparotomy with ileocecectomy and partial omentectomy for appendicitis in 2021 with peritoneal carcinomatosis noted intraop. He has been following
with [facility] (Dr. Hodges) and receiving chemotherapy (Lanreotide) at [facility] here at [facility]. He was tolerating diet with regular stools up until about 3 weeks ago. He received his last dose of lanreotide on 04/25 and instead of having
diarrhea as he usually does he noted that his stool outputs started to decrease. As the past few weeks have progressed, he has been passing less and less stool and having more cramping. He presented on 05/02 for evaluation and was d/cd to home from
the ED on bowel regimen. 2 days ago, he began having frequent small episodes of watery stool with initial relief and then bloating and discomfort about 30 min later. Yesterday, he was no longer able to pass stool and began having burping, nausea and
vomiting. He has not passed flatus since yesterday morning. He was evaluated in the ED with NGT placement and notes symptomatic improvement with this. He is distended on exam but without peritoneal signs or tenderness.
Past Medical History
Past Medical History: Cancer (Neuroendocrine bowel ca with peritoneal carcinomatosis) and Other (BPH)
Past Surgical History: Appendectomy (ex lap with ileocecectomy, partial omentectomy), Bowel Resection and Cholecystectomy
Social History
Tobacco: Non-Smoker
Alcohol: None
Living: With Family
Employment: Employed
Family History
Family History: Reviewed & Not Pertinent
Allergies / Home Medications
Allergy/AdvReac Type Severity Reaction Status Date / Time
No Known Allergies Allergy Verified 05/09/25 23:49
�Medication �Instructions �Recorded �Confirmed �Type
lanreotide 120 mg/0.5 mL 120 mg SC Q4W 05/10/25 05/10/25 History
subcutaneous syringe
ssskja-qfyzznzr-rcgfaja 1 cap PO AC 05/10/25 05/10/25 History
(pork)6,000-19,000-30,000 unit
capsule,del rel (Creon)
tamsulosin 0.4 mg capsule 0.4 mg PO DAILY 05/10/25 05/10/25 History
Review of Systems
-
History Source: Patient
All other systems: Negative unless noted
A 10 point review of systems was completed, and was negative except as per HPI.
Physical Exam
Vital Signs
Temp Pulse Resp BP Pulse Ox
98.2 F 70 16 126/68 95
05/10/25 08:33 05/10/25 08:33 05/10/25 08:33 05/10/25 08:33 05/10/25 10:36
05/09/25 05/10/25 05/11/25
06:59 06:59 05:59
Actual Weight 69.853 kg
Body Mass Index (BMI) 21.5
Lab Results
05/10/25 02:55
05/10/25 02:55
WBC 9.4 10^3/uL (4.8-10.8) 05/10/25 02:55
Hgb 14.8 g/dL (13.0-18.0) 05/10/25 02:55
Hct 43.4 % (39.0-52.0) 05/10/25 02:55
Plt Count 290 10^3/uL (130-400) 05/10/25 02:55
Abs Immat Gran (auto) 0.0 10^3/uL (0-0.05) 05/10/25 02:55
Neutrophils % 73.5 % (42.2-75.2) 05/10/25 02:55
Physical Exam
General: Well Developed and Well Nourished
HEENT: Normocephalic
Respiratory: Non Labored Respirations
GI: Soft, Non Tender, Distended and Other (no rebound, rigidity or guarding)
Skin: Warm and Dry
Neuro: Awake
Data Reviewed
-
CT Scan: Image Personally Visualized and interpreted, Report Reviewed by me, Discussed with Physician, Discussed with Nurse, Discussed with Patient and Discussed with Family
Labs: Labs Reviewed by me, Discussed with Physician, Discussed with Patient and Discussed with Family
Old Records: Reviewed
Assessment / Plan
-
Mr Carias is a 59 yo male with h/o neuroendocrine tumor dx in 2020 at time of malignant SBO, subsequent laparotomy with ileocecectomy and partial omentectomy for appendicitis in 2021 with peritoneal carcinomatosis noted intraop. He has been following
with [facility] (Dr. Hodges) and receiving chemotherapy (Lanreotide LD 04/25) at [facility]. He notes 3 weeks of progressively having lower stool outputs. He presented on 05/02 for evaluation and was d/cd to home from the ED on
bowel regimen. 2 days ago, he began having frequent small episodes of watery stool with initial relief and then bloating and discomfort about 30 min later. Yesterday, he was no longer able to pass stool and began having burping, nausea and vomiting.
He has not passed flatus since yesterday morning. CT imaging reviewed and consistent with a large bowel obstruction secondary to peritoneal neoplastic dz. NGT placed in the ED with symptomatic relief. Afebrile. VSS. No c/o pain although distention
is present.
Discussed options with patient and his family. Offered palliative diverting colostomy; however, this would do nothing to treat his underlying neoplastic disease. Also discussed transfer to [facility] for oncologic surgical evaluation for
hipec/cytoreductive surgery (not offered here a [facility]) as well as evaluation by his primary medical oncology team. The patient and his family would like to pursue further oncologic therapy. d/w hospitalist regarding transfer.
Plan;
Transfer to [facility] for surgical oncology
Continue NGT for decompression/NPO
Analgesics/antiemetics if needed
Medical management as per primary team
--- NOTE | 2025-05-10 13:00 | CM ---
I.A: Initial Assessment Completed By LUDIVINA Ferguson.
Patient lives with his Partner (think that there were or are ?) in a Condo with powder room on the 1st and bathroom on the 2nd. No DME, uses [facility] for Chemo injections, and No Inpatient Reha.
PCP: Dr. Evie Allen
Pharmacy: [facility] near [place]
Patient has transportation, but said that we are looking into sending him to [facility] all [facility]. PLAN: Send to [facility].
[2025-05-10] MEDS: CYANOCOBALAMIN 1000 MCG IM (13:01)
--- NOTE | 2025-05-10 13:05 | CM ---
F/U: LUDIVINA Ferguson learned from Conveyor Worker that the patient is transferring to [facility] today. PLAN: Transfer to [facility].
[2025-05-10 15:16] VITALS: BP 141/72
== END 2025-05-10 15:19 | disposition short-term general hospital (02) | DRG 389 ==
LOC: 2 SOUTH 07:30
PROVIDERS: ADMITTING PHYSICIAN Hospitalist; ATTENDING PHYSICIAN Hospitalist; CONSULT PHYSICIAN Surgery; EMERGENCY PHYSICIAN Emergency Medicine; FAMILY PHYSICIAN Family Medicine
DX: K56.50 Intestinal adhesions [bands], unspecified as to partial versus complete obstruction (principal); C7A.8 Other malignant neuroendocrine tumors; N17.9 Acute kidney failure, unspecified; E87.1 Hypo-osmolality and hyponatremia; N40.0 Benign prostatic hyperplasia without lower urinary tract symptoms; Z87.891 Personal history of nicotine dependence; Z79.899 Other long term (current) drug therapy
CPT/HCPCS: 43752; 74177; 80053; 83605; 83690; 85025; 96360; 99285; Q9967